=== PATIENT | male | born 1965 | race African-American/Black ===

== ENCOUNTER 2023-08-07 07:50 | Emergency (ER) | payer MEDICARE, OTHER ==
[~2023-08-07] VITALS: Ht 180.3 cm; Wt 96.0 kg
[2023-08-07 07:53] VITALS: TEMP 98.3
[2023-08-07] MEDS ORDERED: KETOROLAC TROMETHAMINE 30 MG/ML VIAL IM ONE (08:15)
[2023-08-07] MEDS ORDERED: LIDOCAINE 5% TRANSDERMAL PATCH TD ONE (08:15)
[2023-08-07] MEDS ORDERED: LIDO700A15 TP (08:16)
[2023-08-07] MEDS ORDERED: IBUP-1492 PO (08:16)
[2023-08-07 08:32] VITALS: BP 132/88; PULSE 68; RESP 16
== END 2023-08-07 09:34 | disposition home or self-care (01) ==
LOC: EMS 07:50
DX: M54.12 Radiculopathy, cervical region (principal); M19.90 Unspecified osteoarthritis, unspecified site; E78.00 Pure hypercholesterolemia, unspecified
CPT/HCPCS: 99283; 96372; J1885